=== PATIENT | male | born 1960 | race Caucasian/White ===

== ENCOUNTER 2020-03-26 15:13 | Emergency (ER) | payer BC ==
--- OUTSIDE RECORDS SUMMARY | 2020-03-26 15:26 | XMS REPORT | Continuity of Care Document ---
:1960 Author Organization [facility] t Address [address] [place] [address] Care Team Providers Name Role Phone Provider, Urgent Care Attending Clinician Unavailable Payers Payer Name Policy Type Policy Number Effective Date Expiration Date S ource Problems This patient has no known problems. Allergies, Adverse Reactions, Alerts Allergy Allergy Status Severity Reaction(s) Onset Inactive Treating Comm ents Source Name Type Date Date Clinician [place] Active [place] 2018-03 [facility]13 [place] [facility] [place] 2018-03 [facility] ([place] 2-13 [place] mid 00:00: Orthope Antibiot 00 dic ics) Hospita l Medications This patient has no known medications. Procedures This patient has no known procedures. Encounters Start End Encounter Admission Attending Care Care Encounter Source Date/Time Date/Time Type Type Clinicians Facility Department ID 2019-11-08 2019-11-08 Urgent Provider, [facility] [id number] 15:34:53 16:03:42 Care [facility] [id number] [facility] [id number] [facility] Edlobo [phone] [address] Results This patient has no known results.
--- NOTE | 2020-03-26 19:08 | RAD REPORT ---
EXAM DESCRIPTION: US - Extremity Venous Uni Ltd - 03/26/2020 6:32 pm CLINICAL HISTORY: SWELLING, COVID positive COMPARISON: None. TECHNIQUE: Real-time sonographic evaluation of the left lower extremity deep venous system was perfo rmed. FINDINGS: Normal compressibility seen in the left common femoral vein. The proximal superficial femo ral vein into the popliteal vein show echogenic material within the vessel lumen. These deep veins do not compress. No greater saphenous vein thrombus seen. No suspicious finding in the soft tissues. IMPRESSION: Left leg acute deep venous thrombosis involving the proximal femoral vein distally into the popliteal vein.
--- NOTE | 2020-03-26 19:44 | RAD REPORT ---
EXAM DESCRIPTION: RAD - Chest Single View - 03/26/2020 7:27 pm CLINICAL HISTORY: DVT, COVID positive COMPARISON: None TECHNIQUE: AP portable chest image was obtained 03/26/2020 7:27 pm . FINDINGS: No dense mass or consolidation. No definitive airspace opacities seen. Heart and vasculatu re are normal. No measurable pleural effusion and no pneumothorax. No acute bony abnormality seen. No acute aortic findings suspected. IMPRESSION: No acute cardiopulmonary process. As clinical findings warrant, CT chest imaging could be performed to more sensitively assess lung par enchyma and to evaluate the pulmonary arterial tree given the left leg DVT findings.
[2020-03-26 20:03] LABS: Basophils % 0.7 % (0-1.3); Hematocrit 39.1 % (39.6-49.0); Lymphocytes % 12.1 % (15.3-44.8); MPV 8.7 fL (7.6-11.3); RBC Red Blood Cell Count 4.61 M/uL (4.33-5.43)
[2020-03-26 20:30] LABS: ALT/SGPT 31 U/L (12-78); AST/SGOT 18 U/L (15-37); Albumin 3.7 g/dL (3.4-5.0); Alkaline Phosphatase 117 U/L (45-117); BUN Blood Urea Nitrogen 23 mg/dL (7-18); Bicarbonate 29 mmol/L (21-32); Bilirubin Direct 0.2 mg/dL (0-0.2); Bilirubin Total 0.6 mg/dL (0.2-1.0); Glucose Level 101 mg/dL (74-106); Magnesium 2.2 mg/dL (1.8-2.4); NT PRO-BNP 112 pg/mL (<125); Potassium 4.1 mmol/L (3.5-5.1); Protein, Total 7.6 g/dL (6.4-8.2); Sodium Level 140 mmol/L (136-145); Troponin (Emerg Dept Use Only) < 0.02 ng/mL (0.0-0.045)
[2020-03-26 20:36] LABS: Protime INR 1.15
[2020-03-26] MEDS ORDERED: ENOXAPARIN 80 MG/0.8 ML SQ ONE (20:45)
[2020-03-26] MEDS ORDERED: NA CHLORIDE 0.9% 1,000 ML ONE (20:52)
--- NOTE | 2020-03-26 21:32 | RAD REPORT ---
EXAM DESCRIPTION: CT - Chest For Pe Angio - 03/26/2020 9:09 pm CLINICAL HISTORY: positive for DVT, positive, shortness of breath, fever COMPARISON: Chest Single View dated 03/26/2020 TECHNIQUE: Dynamically enhanced 3 mm thick images of the chest were obtained during administration o f approximately 150mL Isovue 370 IV contrast. Coronal and oblique MIP reconstruction images were gene rated and reviewed. Exam utilizes a protocol to evaluate the pulmonary arterial tree. All CT scans are performed using dose optimization technique as appropriate and may include automated exposure control or mA/KV adjustment according to patient size. FINDINGS: Right lower lobar and segmental branch pulmonary emboli are present in the right lower lob e. Suspected segmental and subsegmental branch pulmonary emboli seen in the anterior aspect of the le ft lower lobe. Significant right upper lobar and segmental branch pulmonary emboli present. No pulmon manuela hemorrhage. The aorta as imaged shows no acute or suspicious finding. No pericardial thickening or effusion. Minimal atelectasis change. No COVID-19 pneumonia findings of the lung parenchyma. No pleural effusio n or pleural thickening. No mediastinal or hilar suspicious masses. No chest wall masses or abnormal axillary lymphadenopathy. IMPRESSION: Right upper and right lower lobar and segmental branch pulmonary emboli. Left lower lobe segmental and subsegmental branch pulmonary emboli. No pulmonary hemorrhage or acute lung parenchymal finding. No COVID-19 pneumonia findings.
--- NOTE | 2020-03-26 22:00 | ER ---
Nurse's Notes [facility] Name: Cristino Odonnell Age: 59 yrs Sex: Male : 1960 Arrival Date: 03/26/2020 Time: 15:18 Bed 5 Private MD: Diagnosis: Acute embolism and thrombosis of other specified deep vein of left lower extremity;Pulmonary embolism Presentation: 03/26 15:25 Chief complaint: Patient states: i tested POSITIVE for Covid on was supposed to tw2 have hernia sx, on the i started having fever and feeling run down, over the weekend my LEFT leg in the foot and lower leg swelled up. Coronavirus screen: Client presents with at least one sign or symptom that may indicate coronavirus-19. Standard/surgical mask placed on the client. Provider contacted for isolation considerations. Client reports previous positive COVID test result. Date of collection: March 16, 2020. Ebola Screen: Patient denies travel to an Ebola-affected area in the 21 days before illness onset. Initial Sepsis Screen: Does the patient meet any 2 criteria? No. Patient's initial sepsis screen is negative. Does the patient have a suspected source of infection? No. Patient's initial sepsis screen is negative. Risk Assessment: Do you want to hurt yourself or someone else? Patient reports no desire to harm self or others. Onset of symptoms was March 26, 2020. 15:25 Method Of Arrival: Ambulatory tw2 15:25 Acuity: DIAN 3 tw2 Triage Assessment: 15:28 General: Appears in no apparent distress. slender, well groomed, Behavior is calm, tw2 cooperative, appropriate for age. Pain: Complains of pain in left leg. Historical: - Allergies: 15:28 No Known Allergies; tw2 - Home Meds: 15:28 None [Active]; tw2 - PMHx: 15:28 None; tw2 - PSHx: 15:28 right wrist. bone spur removed; Tonsillectomy; tw2 - Immunization history:: Adult Immunizations. - Social history:: Smoking status: . Screenin:37 Abuse screen: Denies threats or abuse. Denies injuries from another. Nutritional mg2 screening: No deficits noted. Tuberculosis screening: No symptoms or risk factors identified. Fall Risk IV access (20 points). Assessment: 18:35 Reassessment: no answer, not in lobby. tw2 20:56 Reassessment: Patient appears in no apparent distress at this time. Patient and/or mg2 family updated on plan of care and expected duration. Pain level reassessed. Patient is alert, oriented x 3, equal unlabored respirations, skin warm/dry/pink. 21:07 General: patient sent to ct scan via stretcher. mg2 Vital Signs: 15:25 BP 128 / 76; Pulse 71; Resp 17; Temp 99.2(TE); Pulse Ox 100% on R/A; Weight 77.11 kg tw2 (R); Height 5 ft. 10 in. (177.80 cm); 22:27 BP 122 / 80; Pulse 80; Resp 18; Temp 98.8; Pulse Ox 100% on R/A; em 15:25 Body Mass Index 24.39 (77.11 kg, 177.80 cm) tw2 ED Course: 15:18 Patient arrived in ED. am4 15:27 Triage completed. tw2 15:28 Arm band placed on. tw2 18:17 Patient taken to ultrasound. via wheelchair. is 18:32 US Extremity Venous Unilateral Ltd In Process Unspecified. EDMS 18:32 Ultrasound completed. Patient tolerated well. is 18:34 Patient taken to an exam room. is 18:44 Ranjith Victoria NP is PHCP. pm1 18:44 Jonh Steen MD is Attending Physician. pm1 19:21 Harley Leonard, MARCIANO is Primary Nurse. mg2 19:27 XRAY Chest (1 view) In Process Unspecified. EDMS 19:37 Patient has correct armband on for positive identification. mg2 19:37 No provider procedures requiring assistance completed. Inserted saline lock: 18 gauge mg2 in right antecubital area, using aseptic technique. Blood collected. by JESSICA Baltazar Tech. 19:45 Inserted saline lock: 22 gauge in left antecubital area, using aseptic technique. IV ds4 discontinued, intact, bleeding controlled, No redness/swelling at site. Pressure dressing applied. 21:09 CT Chest For PE Angio In Process Unspecified. EDMS 21:58 Wade Espinosa MD is Referral Physician. pm1 22:27 IV discontinued, intact, bleeding controlled, No redness/swelling at site. Pressure em dressing applied. Administered Medications: 20:32 Drug: Lovenox 1 mg/kg Route: Sub-Q; Site: right lower abdomen; mg2 22:26 Follow up: Response: No adverse reaction em 20:40 Drug: NS 0.9% 1000 ml Route: IV; Rate: 1000 ml; Site: left antecubital; mg2 22:13 Follow up: Response: No adverse reaction; IV Status: Completed infusion; IV Intake: em 1000ml 22:26 Drug: Eliquis 10 mg Route: PO; em 22:26 Follow up: Response: No adverse reaction; Medication administered at discharge. em Intake: 22:13 IV: 1000ml; Total: 1000ml. em Outcome: 21:59 Discharge ordered by MD. pm1 22:27 Discharged to home ambulatory. em 22:27 Condition: stable 22:27 Discharge instructions given to patient, Instructed on discharge instructions, follow up and referral plans. medication usage, Demonstrated understanding of instructions, follow-up care, medications, Prescriptions given X 1. 22:27 Patient left the ED. em Signatures: Dispatcher [employer] Wilfrid Cruz RN RN em Giovanny Medina ds4 Ranjith Victoria, COIN MACHINE COLLECTOR COIN MACHINE COLLECTOR pm1 Shannan Pike RN RN tw2 Harley Leonard RN RN mg2 Shelli Delatorre Ashley am4
--- NOTE | 2020-03-26 22:01 | EDPHYS ---
Physician Documentation [facility] Name: Cristino Odonnell Age: 59 yrs Sex: Male : 1960 Arrival Date: 03/26/2020 Time: 15:18 Bed 5 Private MD: ED Physician Jonh Steen HPI: 03/26 19:03 This 59 yrs old Male presents to ER via Ambulatory with complaints of Left pm1 Leg Pain, COVID+. 19:03 The patient presents with pain, that is acute, swelling, tenderness. The complaints pm1 affect the left leg. Context: resulted from an unknown cause, the patient is able to ambulate. Onset: The symptoms/episode began/occurred 3 day(s) ago. Modifying factors: The symptoms are alleviated by remaining still, the symptoms are aggravated by movement. Associated signs and symptoms: Pertinent positives: calf tenderness, swelling, Pertinent negatives fever, numbness, tingling, chest pain, shortness of breath. Treatment prior to arrival includes: no previous treatment. Severity of symptoms: in the emergency department the symptoms are actually worse. The patient has experienced a previous episode, approximately 1 years ago, to the right leg. 19:03 The patient has not recently seen a physician, the patient's primary care provider is pm1 Dr. Espinosa. Historical: - Allergies: 15:28 No Known Allergies; tw2 - Home Meds: 15:28 None [Active]; tw2 - PMHx: 15:28 None; tw2 - PSHx: 15:28 right wrist. bone spur removed; Tonsillectomy; tw2 - Immunization history:: Adult Immunizations. - Social history:: Smoking status: . ROS: 19:03 Constitutional: Negative for fever, chills, and weight loss, Neck: Negative for injury, pm1 pain, and swelling, Cardiovascular: Negative for chest pain, palpitations, and edema, Respiratory: Negative for shortness of breath, cough, wheezing, and pleuritic chest pain, Abdomen/GI: Negative for abdominal pain, nausea, vomiting, diarrhea, and constipation, Back: Negative for injury and pain. 19:03 Skin: Negative for injury, rash, and discoloration, Neuro: Negative for headache, weakness, numbness, tingling, and seizure. 19:03 MS/extremity: Positive for pain, swelling, tenderness, of the lateral aspect of left thigh, left hamstring and left calf. Exam: 19:03 Constitutional: This is a well developed, well nourished patient who is awake, alert, pm1 and in no acute distress. Head/Face: Normocephalic, atraumatic. 19:03 Skin: Warm, dry with normal turgor. Normal color with no rashes, no lesions, and no evidence of cellulitis. MS/ Extremity: Pulses equal, no cyanosis. Neurovascular intact. Full, normal range of motion. 19:03 Cardiovascular: Exam negative for acute changes, Rate: normal, Rhythm: regular, Pulses: no pulse deficits are appreciated. 19:03 Respiratory: Exam negative for acute changes, respiratory distress, shortness of breath. 19:03 Abdomen/GI: Inspection: abdomen appears normal, Palpation: abdomen is soft and non-tender, in all quadrants. 19:03 Musculoskeletal/extremity: DVT Exam: pain, of the left leg, of the left calf and left hamstring and lateral aspect of left thigh, swelling, of the left calf and left hamstring, tenderness, of the left calf and left hamstring and lateral aspect of left thigh. 19:03 Neuro: Exam negative for acute changes, Orientation: is normal, Mentation: is normal, Motor: is normal, moves all fours. Vital Signs: 15:25 BP 128 / 76; Pulse 71; Resp 17; Temp 99.2(TE); Pulse Ox 100% on R/A; Weight 77.11 kg tw2 (R); Height 5 ft. 10 in. (177.80 cm); 22:27 BP 122 / 80; Pulse 80; Resp 18; Temp 98.8; Pulse Ox 100% on R/A; em 15:25 Body Mass Index 24.39 (77.11 kg, 177.80 cm) tw2 MDM: 18:44 Patient medically screened. pm1 19:24 Data reviewed: vital signs. Data interpreted: Pulse oximetry: on room air is 100 %. pm1 Interpretation: normal. 21:40 Counseling: I had a detailed discussion with the patient and/or guardian regarding: the pm1 historical points, exam findings, and any diagnostic results supporting the discharge/admit diagnosis, lab results, radiology results, the need for further work-up and treatment in the hospital. 21:50 Physician consultation: Lobo Gonzalez MD was called at 21:50, was contacted at 21:50, pm1 regarding admission, patient's condition, After consultation on patient's condition, Dr. Gonzalez said that patient does not currently met criteria for admission to the hospital. No shortness of breath or supplemental oxygen requirements. Patient can be discharged home on Eliquis 10 mg PO BID for 7 days then 5 mg PO BID. If the patient is unable to obtain the medication or is uncomfortable going home then he can be admitted. 21:58 Counseling: I had a detailed discussion with the patient and/or guardian regarding: pm[address] Gonzalez's recommendations and the patient does not want to stay in the hospital. Educated the patient on return precautions. 22:14 Physician consultation: Wade Espinosa MD was called at 22:14, No answer, left message. pm1 03/26 18:52 Order name: Basic Metabolic Panel pm03/26 18:52 Order name: CBC with Diff 03/26 18:52 Order name: LFT's 03/26 18:52 Order name: Magnesium pm03/26 18:52 Order name: NT PRO-BNP pm03/26 18:52 Order name: PT-INR pm03/26 18:52 Order name: Troponin (emerg Dept Use Only) pm03/26 18:52 Order name: Basic Metabolic Panel; Complete Time: 20:32 EDMS 03/26 18:52 Order name: CBC with Automated Diff; Complete Time: 20:16 EDMS 03/26 18:52 Order name: Liver (Hepatic) Function; Complete Time: 20:32 EDMS 03/26 18:52 Order name: Magnesium; Complete Time: 20:32 EDMS 03/26 18:52 Order name: NT PRO-BNP; Complete Time: 20:32 EDMS 03/26 18:52 Order name: Protime (+INR); Complete Time: 20:50 EDMS 03/26 18:52 Order name: Troponin (Emerg Dept Use Only); Complete Time: 20:32 EDMS 03/26 17:52 Order name: US Extremity Venous Unilateral Ltd; Complete Time: 19:10 03/26 18:52 Order name: XRAY Chest (1 view); Complete Time: 19:49 pm1 03/26 18:52 Order name: EKG; Complete Time: 18:53 pm03/26 18:52 Order name: Cardiac monitoring; Complete Time: 19:36 pm03/26 18:52 Order name: EKG - Nurse/Tech; Complete Time: 19:36 pm03/26 18:52 Order name: IV Saline Lock; Complete Time: 19:36 pm03/26 18:52 Order name: Labs collected and sent; Complete Time: 19:36 pm03/26 18:52 Order name: O2 Per Protocol; Complete Time: 19:13 pm03/26 18:52 Order name: O2 Sat Monitoring; Complete Time: 19:13 pm03/26 18:52 Order name: CT Chest For PE Angio; Complete Time: 21:34 pm03/26 20:56 Order name: SARS-COV-2 RT PCR; Complete Time: 21:02 EDMS Administered Medications: 20:32 Drug: Lovenox 1 mg/kg Route: Sub-Q; Site: right lower abdomen; mg2 22:26 Follow up: Response: No adverse reaction em 20:40 Drug: NS 0.9% 1000 ml Route: IV; Rate: 1000 ml; Site: left antecubital; mg2 22:13 Follow up: Response: No adverse reaction; IV Status: Completed infusion; IV Intake: em 1000ml 22:26 Drug: Eliquis 10 mg Route: PO; em 22:26 Follow up: Response: No adverse reaction; Medication administered at discharge. em Disposition: 03/26/20 21:59 Discharged to Home. Impression: Acute embolism and thrombosis of other specified deep vein of left lower extremity, Pulmonary embolism. - Condition is Stable. - Discharge Instructions: Deep Vein Thrombosis, Pulmonary Embolism. - Prescriptions for Eliquis 5 mg Oral tablet - take 2 tablets by ORAL route every 12 hours for 7 days , then 1 tablet PO BID; 42 tablet. - Medication Reconciliation Form, Thank You Letter, Antibiotic Education, Prescription Opioid Use form. - Follow up: Emergency Department; When: As needed; Reason: Worsening of condition. Follow up: Wade Espinosa MD; When: 2 - 3 days; Reason: Recheck today's complaints, Continuance of care, Re-evaluation by your physician. - Problem is new. - Symptoms have improved. Addendum: 03/28/2020 23:12 Co-signature as Attending Physician, Jonh Steen MD. r n Signatures: Dispatcher [employer] [facility] Wilfrid Watkins, RN RN Jonh Cisneros MD MD rn Marinas, Patrick, UDAY TOWER FOREMAN pm1 Shannan Pike RN RN tw2 Harley Leonard, RN RN mg2 Corrections: (The following items were deleted from the chart) 03/26 19:58 19:01 CORONAVIRUS+MR.LAB.BRZ ordered. [facility] 22:27 21:59 03/26/2020 21:59 Discharged to Home. Impression: Acute embolism and thrombosis of em other specified deep vein of left lower extremity; Pulmonary embolism. Condition is Stable. Forms are Medication Reconciliation Form, Thank You Letter, Antibiotic Education, Prescription Opioid Use. Follow up: Emergency Department; When: As needed; Reason: Worsening of condition. Follow up: Wade Espinosa; When: 2 - 3 days; Reason: Recheck today's complaints, Continuance of care, Re-evaluation by your physician. Problem is new. Symptoms have improved. pm1 22:39 21:40 Physician consultation: Lobo Gonzalez MD was called at 21:50, was contacted at pm1 21:50, regarding admission, patient's condition, After consultation on patient's condition, Dr. Gonzalez said that patient does not currently met criteria for admission to the hospital. No shortness of breath or supplemental oxygen requirements. Patient can be discharged home on Eliquis 10 mg PO BID for 7 days then 5 mg PO BID. If the patient is unable to obtain the medication or is uncomfortable going home then he can be admitted, pm1
[2020-03-26] MEDS ORDERED: APIXABAN 5 MG TABLET ONE (22:28)
[2020-03-26 22:32] VITALS: O2SAT 100
[2020-03-26 22:34] VITALS: BP 122/80; TEMP 98.8
--- NOTE | 2020-03-28 06:31 | EKG ---
Test Date: 2020-03-26 Test Time: 19:25:37 Data Conversion Developer: KIESHA MEASUREMENT RESULTS: Intervals: Rate: 59 PA: 118 QRSD: 94 QT: 380 QTc: 376 [place]: P: 24 PA: 118 QRS: 90 T: 43 INTERPRETIVE STATEMENTS: Sinus bradycardia Rightward axis Moderate voltage criteria for LVH, may be normal variant Borderline ECG No previous ECG available for comparison Electronically Signed On 03-28-20 06:27:29 GLOBAL ACCOUNT MANAGER by Ajith Naqvi
== END 2020-03-26 22:27 | disposition home or self-care (01) ==
LOC: ER 15:13
DX: I82.412 Acute embolism and thrombosis of left femoral vein (principal); I82.432 Acute embolism and thrombosis of left popliteal vein; I26.99 Other pulmonary embolism without acute cor pulmonale; Z20.822 Contact with and (suspected) exposure to COVID-19
CPT/HCPCS: 96361; 93005; 85025; 80048; 36415; 83735; 85610; 80076; 84484; 83880; 71275; 71045; 93971; 96360; 96372; 99284; U0003; Q9967; J7030